=== PATIENT | male | born 2000 | race Caucasian/White ===

== ENCOUNTER 2020-06-24 07:17 | Emergency (ER) | payer OTHER ==
[~2020-06-24] VITALS: Ht 182.9 cm; Wt 73.7 kg
[2020-06-24] MEDS ORDERED: ONDANSETRON 2MG/ML, 2ML ONE (07:43)
[2020-06-24] MEDS ORDERED: SODIUM CHLORIDE 0.9% 1,000ML IVBOLUS ONE (08:00)
[2020-06-24] MEDS ORDERED: ONDANSETRON 2MG/ML, 2ML IVPush ONE (08:00)
[2020-06-24 08:02] LABS: BASOPHILS % (AUTO) 0 % (0-1); EOSINOPHILS % (AUTO) 0 % (1-7); LYMPHOCYTES % (AUTO) 8 % (22-44); MEAN CORPUSCULAR HGB CONC 35.1 g/dL (33.2-36.2); MEAN PLATELET VOLUME 7.6 fL (7.4-10.4); MONOCYTES % (AUTO) 5 % (2-9); NEUTROPHILS % (AUTO) 87 % (42-75); PLATELET COUNT 252 x10^3/uL (130-400); RED BLOOD COUNT 4.78 x10^6/uL (4.38-5.82)
[2020-06-24 08:04] LABS: MD NO
[2020-06-24 08:14] LABS: ALANINE AMINOTRANSFERASE 28 U/L (12-78); ALBUMIN 4.1 g/dL (3.4-5.0); ANION GAP 9 mmol/L (5-15); CALCIUM 8.6 mg/dL (8.5-10.1); CHLORIDE 109 mmol/L (98-107)
[2020-06-24 08:17] LABS: ALKALINE PHOSPHATASE 84 U/L (45-117); BILIRUBIN,TOTAL 0.5 mg/dL (0.2-1.0); TOTAL PROTEIN 7.2 g/dL (6.4-8.2)
--- NOTE | 2020-06-24 08:17 | NUR ---
LABS DRAWN. URINE COLLECTED/SENT TO LAB. VSS/UPDATED IN COMPUTER.
[2020-06-24 08:33] LABS: MICROSCOPIC INDICATED
--- NOTE | 2020-06-24 08:45 | NUR ---
IV PLACED, NS BOLUS INFUSING. LAB IN TO DRAW VENOUS BLOOD GAS. CALL LIGHT WITHIN REACH.
--- NOTE | 2020-06-24 08:58 | NUR ---
REPORT TO GALA SANCHEZ, TRANSFER OF CARE AT THIS TIME.
[2020-06-24 09:05] LABS: ACETONE, SERUM Negative (Negative)
[2020-06-24 09:05] LABS: PH, VENOUS 7.356 pH (7.320-7.420)
--- NOTE | 2020-06-24 09:21 | NUR ---
RECEIVED REPORT FROM DANIEL BEAVER. PT RESTING ON GURNEY. ROME. VSS. AWAITING LAB RESULTS. PT AWARE. STATES HE FEELS MUCH BETTER AT THIS TIME THAN ON ARRIVAL.
--- NOTE | 2020-06-24 10:07 | NUR ---
PT CHART REVIEWED AND PLACED FOR RECHECK.
[2020-06-24 10:28] VITALS: BP 115/72
== END 2020-06-24 10:34 | disposition home or self-care (01) ==
LOC: ED 08:23
DX: K52.9 Noninfective gastroenteritis and colitis, unspecified (principal); R42 Dizziness and giddiness; E11.10 Type 2 diabetes mellitus with ketoacidosis without coma; E11.9 Type 2 diabetes mellitus without complications
CPT/HCPCS: 36415; 80053; 81001; 82010; 82803; 85025; 96374; 99283; J2405; J7030

== ENCOUNTER 2020-09-06 13:27 | Inpatient (IN) | payer OTHER ==
[~2020-09-06] VITALS: Ht 180.3 cm; Wt 76.5 kg
[2020-09-06] MEDS ORDERED: ONDANSETRON 2MG/ML, 2ML ONE ×2 (14:16→16:43)
[2020-09-06] MEDS ORDERED: SODIUM CHLORIDE FLUSH 10ML SYR IVF ONE (14:30)
[2020-09-06] MEDS ORDERED: ONDANSETRON 2MG/ML, 2ML IVPush ONE ×2 (14:30→17:00)
[2020-09-06] MEDS ORDERED: SODIUM CHLORIDE 0.9% 1,000ML IVBOLUS ONE ×2 (14:30→16:30)
--- NOTE | 2020-09-06 14:43 | NUR ---
PIV STARTED, LABS DRAWN OFF EASTABLISHED LINE. PT MEDICATED PER EMAR. PT RESTING ON [employer] W/ CALL LIGHT IN REACH AND SIDE RAILS UPX2. RESP EVEN AND UNLABORED, ROME.
[2020-09-06 14:48] LABS: MEAN CORPUSCULAR HEMOGLOBIN 30.9 pg (27.5-34.5); MEAN CORPUSCULAR HGB CONC 35.1 g/dL (33.2-36.2); MEAN PLATELET VOLUME 8.3 fL (7.4-10.4); PLATELET COUNT 228 x10^3/uL (130-400); RED BLOOD COUNT 5.34 x10^6/uL (4.38-5.82); RED CELL DISTRIBUTION WIDTH 13.1 % (9.4-14.8)
[2020-09-06 14:55] LABS: ALANINE AMINOTRANSFERASE 39 U/L (12-78); ALBUMIN 4.1 g/dL (3.4-5.0); ANION GAP 5 mmol/L (5-15); CALCIUM 8.7 mg/dL (8.5-10.1); CHLORIDE 104 mmol/L (98-107); CREATININE 1.01 mg/dL (0.7-1.3)
[2020-09-06 14:55] LABS: PH, VENOUS 7.369 pH (7.320-7.420)
[2020-09-06 14:57] LABS: ALKALINE PHOSPHATASE 79 U/L (45-117); BILIRUBIN,TOTAL 0.9 mg/dL (0.2-1.0); TOTAL PROTEIN 7.4 g/dL (6.4-8.2)
[2020-09-06 15:18] LABS: MD YES
[2020-09-06 15:19] LABS: ACETONE, SERUM Trace (Negative)
[2020-09-06 15:22] LABS: BANDS%(MANUAL) 21 % (0-7); LYMPH#(MANUAL) 0.29 x10^3/uL (1-3.4); LYMPHS% (MANUAL) 2 % (22-44); METAMYELOCYTES# (MANUAL) 0.14 x10^3/uL (0-0); METAMYELOCYTES% (MANUAL) 1 % (0-1); MONOS#(MANUAL) 0.43 x10^3/uL (0.3-2.7); MONOS% (MANUAL) 3 % (2-9); SEG#(MANUAL) 10.44 x10^3/uL (1.8-6.8); SEGS% (MANUAL) 73 % (42-75)
[2020-09-06 15:23] LABS: <PLATELET ESTIMATE> ADEQUATE; <RBC MORPHOLOGY> NORMAL; LARGE PLATELETS 1+
[2020-09-06] MEDS ORDERED: IBUPROFEN 200 MG TABLET ONE (16:28)
[2020-09-06] MEDS ORDERED: CEFTRIAXONE PMX 1GM/50ML 50 ML ONE (16:28)
[2020-09-06] MEDS ORDERED: CEFTRIAXONE PMX 1GM/50ML 50 ML IVPB ONE (16:30)
--- NOTE | 2020-09-06 16:37 | NUR ---
2ND L NS BOLUS STARTED. PER ERP ABX NOT INDICATED. ABX STARTED. URINE SENT TO LAB. PT RESTING ON [employer] W/ CALL LIGHT IN REACH AND SIDE RAILS UPX 2. RESP EVEN AND UNLABORED, ROME.
--- NOTE | 2020-09-06 16:46 | NUR ---
PT REPORTS NAUSEA HAS RETURNED. MORE ZOFRAN REQ FROM . PT MEDICATED PER EMAR.
[2020-09-06 16:52] LABS: MICROSCOPIC NOT IND
[2020-09-06] MEDS ORDERED: IBUPROFEN 200 MG TABLET PO ONE (17:00)
--- NOTE | 2020-09-06 17:40 | NUR ---
PT REPORTS RELIEF IN NAUSEA AFTER SECOND DOSE OF ZOFRAN. 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 ERP UPDATED.
[2020-09-06] MEDS ORDERED: ACETAMINOPHEN 500 MG TABLET ONE (17:51)
[2020-09-06] MEDS ORDERED: ACETAMINOPHEN 500 MG TABLET PO ONE (18:00)
--- NOTE | 2020-09-06 18:47 | NUR ---
PT REPORTS NO IMPROVEMENT FROM LAST CHECK. TEMP IMPROVED SINCE 2ND ANTIPYRETIC ADMIN. WILL UPDATE ERP.
--- NOTE | 2020-09-06 18:55 | NUR ---
REPORT GIVEN TO HARI SANCHEZ. PT RESTING ON GURNEY W/ CALL LIGHT IN REACH AND SIDE RAIL UPX1. RESP EVEN AND UNLABORED, ROME.
--- NOTE | 2020-09-06 18:55 | NUR ---
RECEIVED BS REPORT FROM DANIEL PAYNE TO ASSUME CARE OF PT. PT. RESTING ON GURNEY WITH NO SIGNIFICANT DISTRESS NOTED. DENIES PAIN. CONTINUES TO C/O NAUSEA. AWATING DISPO FROM PROVIDER.
--- NOTE | 2020-09-06 19:16 | NUR ---
DR. RANDALL TO BS TO DISCUSS PLAN FOR ADMISSION WITH PT. AND MOTHER ON PHONE. PT. AND MOTHER AGREE WITH POC.
[2020-09-06] MEDS ORDERED: INSU100V8 SQ (19:32)
--- NOTE | 2020-09-06 19:44 | NUR ---
PT. PROVIDED WITH DIET SPRITE AND STRING CHEESE/CRACKERS PER REQUEST FOR FOOD AND AFTER OK FROM DR. RANDALL. PT. DOES STILL C/O NAUSEA BUT STATES HE IS MORE HUNGRY THAN NUSEAOUS AT THIS TIME HE HASN'T HAD ANYTING TO EAT TODAY.
--- NOTE | 2020-09-06 19:50 | NUR ---
DR. RANDALL TO BS TO SWAB PT. FOR COVID AT THIS TIME.
[2020-09-06] MEDS ORDERED: ONDANSETRON 2MG/ML, 2ML IVPush PRN ×2 (20:00→22:00)
[2020-09-06] MEDS ORDERED: SODIUM CHLORIDE FLUSH 10ML SYR IVF PRN (20:00)
[2020-09-06] MEDS ORDERED: SODIUM CHLORIDE 0.9% 1,000 ML IV ONE (20:00)
--- NOTE | 2020-09-06 20:25 | NUR ---
PT. ATE STING CHEESE AND 1 PACK OF CRACKERS. PT. REPORTS NAUSEA BETTER AT THIS TIME. FIRST ATTEMPT TO CALL REPORT TO FLOOR.
--- NOTE | 2020-09-06 20:33 | NUR ---
REPORT TO DANIEL JUNE. FLOOR READY FOR PT. TRANSPORT.
[2020-09-06 20:50] VITALS: BP 113/75
[2020-09-06] MEDS ORDERED: POTASSIUM CHLORIDE 20 MEQ in LACTATED RINGERS 1,000 ML IV SCH (22:00)
[2020-09-06] MEDS ORDERED: ACETAMINOPHEN 325 MG TABLET PO PRN (22:00)
[2020-09-06] MEDS: ENOXAPARIN 40 MG/0.4 ML SQ SCH (22:00)
[2020-09-06] MEDS ORDERED: INSULIN GLARGINE 100 UNITS/ML, PEN SQ-INSULIN SCH (22:00)
[2020-09-06] MEDS ORDERED: HYDROcodone/APAP 5/325 TABLET PO PRN (22:00)
[2020-09-06] MEDS: INSULIN LISPRO 100 UNITS/ML, PEN SQ-INSULIN SCH (22:27)
[2020-09-06] MEDS: POTASSIUM CHLORIDE 20 MEQ in LACTATED RINGERS 1,000 ML IV SCH (22:27)
[2020-09-06] MEDS: INSULIN GLARGINE 100 UNITS/ML, PEN SQ-INSULIN SCH (22:28)
[2020-09-06] MEDS ORDERED: INSU100I18 SQ (23:13)
[2020-09-07 01:15] VITALS: BP 116/76
[2020-09-07] MEDS: PROMETHAZINE 25 MG/ML, 1ML IM PRN ×4 (03:52→20:06)
[2020-09-07] MEDS: POTASSIUM CHLORIDE 20 MEQ in LACTATED RINGERS 1,000 ML IV SCH ×3 (06:04→23:37)
[2020-09-07] MEDS: INSULIN LISPRO 100 UNITS/ML, PEN SQ-INSULIN SCH ×4 (07:00→20:07)
[2020-09-07 07:36] VITALS: BP 124/74
[2020-09-07 08:51] LABS: BASOPHILS % (AUTO) 0 % (0-1); EOSINOPHILS % (AUTO) 0 % (1-7); LYMPHOCYTES % (AUTO) 6 % (22-44); MEAN CORPUSCULAR HEMOGLOBIN 30.7 pg (27.5-34.5); MEAN CORPUSCULAR HGB CONC 34.5 g/dL (33.2-36.2); MEAN PLATELET VOLUME 7.8 fL (7.4-10.4); MONOCYTES % (AUTO) 9 % (2-9); NEUTROPHILS % (AUTO) 86 % (42-75); PLATELET COUNT 192 x10^3/uL (130-400); RED BLOOD COUNT 4.96 x10^6/uL (4.38-5.82); RED CELL DISTRIBUTION WIDTH 12.9 % (9.4-14.8)
[2020-09-07 08:57] LABS: MD NO
[2020-09-07 08:59] LABS: ALBUMIN 3.3 g/dL (3.4-5.0); ANION GAP 7 mmol/L (5-15); CALCIUM 7.9 mg/dL (8.5-10.1); CHLORIDE 106 mmol/L (98-107)
[2020-09-07 09:02] LABS: ALANINE AMINOTRANSFERASE 32 U/L (12-78); ALKALINE PHOSPHATASE 65 U/L (45-117); CHOLESTEROL, TOTAL 93 mg/dL (140-239); CREATININE 0.88 mg/dL (0.7-1.3); HDL CHOL % 49 % (26-37); HDL CHOLESTEROL (DIRECT) 46 mg/dL (40-60); LDL CHOLESTEROL,CALCULATED 32 mg/dL (54-169); LDL/HDL RATIO 0.7 (0.5-3.0); TOTAL PROTEIN 6.3 g/dL (6.4-8.2); TRIGLYCERIDES 75 mg/dL (50-200); VLDL CHOLESTEROL 15 mg/dL (0-25)
[2020-09-07] MEDS ORDERED: ONDANSETRON 2MG/ML, 2ML IVPush PRN (10:30)
[2020-09-07 12:15] VITALS: BP 118/74
[2020-09-07 19:31] VITALS: BP 121/71
[2020-09-07] MEDS: ENOXAPARIN 40 MG/0.4 ML SQ SCH (19:53)
[2020-09-07] MEDS: INSULIN GLARGINE 100 UNITS/ML, PEN SQ-INSULIN SCH (20:08)
[2020-09-08 01:22] VITALS: BP 118/75
[2020-09-08 07:03] VITALS: BP 113/73
[2020-09-08] MEDS: INSULIN LISPRO 100 UNITS/ML, PEN SQ-INSULIN SCH ×4 (08:09→19:59)
[2020-09-08] MEDS: POTASSIUM CHLORIDE 20 MEQ in LACTATED RINGERS 1,000 ML IV SCH ×3 (08:10→23:50)
[2020-09-08 13:45] VITALS: BP 123/85
[2020-09-08 16:27] VITALS: BP 118/79
[2020-09-08 19:09] VITALS: BP 122/81
[2020-09-08] MEDS: INSULIN GLARGINE 100 UNITS/ML, PEN SQ-INSULIN SCH (19:59)
[2020-09-08] MEDS: ENOXAPARIN 40 MG/0.4 ML SQ SCH (22:00)
[2020-09-09 00:09] VITALS: BP 121/81
[2020-09-09 05:34] LABS: BASOPHILS % (AUTO) 1 % (0-1); EOSINOPHILS % (AUTO) 0 % (1-7); LYMPHOCYTES % (AUTO) 21 % (22-44); MEAN CORPUSCULAR HEMOGLOBIN 30.8 pg (27.5-34.5); MEAN CORPUSCULAR HGB CONC 34.9 g/dL (33.2-36.2); MEAN PLATELET VOLUME 8.1 fL (7.4-10.4); MONOCYTES % (AUTO) 18 % (2-9); NEUTROPHILS % (AUTO) 61 % (42-75); PLATELET COUNT 184 x10^3/uL (130-400); RED BLOOD COUNT 4.89 x10^6/uL (4.38-5.82)
[2020-09-09 05:35] LABS: MD NO
[2020-09-09 05:48] LABS: ALBUMIN 3.1 g/dL (3.4-5.0); ANION GAP 8 mmol/L (5-15); CALCIUM 8.2 mg/dL (8.5-10.1); CHLORIDE 99 mmol/L (98-107)
[2020-09-09 05:51] LABS: CREATININE 0.73 mg/dL (0.7-1.3)
[2020-09-09 06:55] VITALS: BP 119/76
[2020-09-09] MEDS: INSULIN LISPRO 100 UNITS/ML, PEN SQ-INSULIN SCH ×2 (08:52→12:17)
[2020-09-09] MEDS: POTASSIUM CHLORIDE 20 MEQ in LACTATED RINGERS 1,000 ML IV SCH (09:35)
[2020-09-09] MEDS ORDERED: METOCLOPRAMIDE 10MG TABLET PO SCH (12:00)
[2020-09-09] MEDS ORDERED: METO10TA2 PO (12:58)
[2020-09-09 13:18] VITALS: BP 115/77
== END 2020-09-09 15:22 | disposition home or self-care (01) | DRG 74 ==
LOC: ED 16:36 → EDIP 19:34 → 3N 21:21 → DCLOUNGE 09-09 15:18
PROVIDERS: ADMIT Internal Medicine; ATTEND Internal Medicine
DX: E10.43 Type 1 diabetes mellitus with diabetic autonomic (poly)neuropathy (principal); D72.825 Bandemia; Z20.822 Contact with and (suspected) exposure to COVID-19; E10.65 Type 1 diabetes mellitus with hyperglycemia; K31.84 Gastroparesis; E86.0 Dehydration; K52.9 Noninfective gastroenteritis and colitis, unspecified; Z79.4 Long term (current) use of insulin
CPT/HCPCS: 36415; 80053; 80061; 80069; 81003; 82010; 82803; 82962; 83605; 83735; 84145; 84443; 85025; 93005; 96361; 96365; 96375; 96376; G0378; J0696; J2405; J2550; J3480; J1815; J7030; J7120; U0003